=== PATIENT | female | born 1970 | race Caucasian/White ===

== ENCOUNTER 2016-06-19 14:35 | Emergency (ER) | payer BC ==
[~2016-06-19] VITALS: Ht 157.5 cm; Wt 75.0 kg
[~2016-06-19 14:35] MED LIST: ADVIL MIGRAINE200 MG PO; AEROBID INHALER7 GM IH; ALBUTEROL S0.4 MG/ML; ALBUTEROL0.83 MG/ML IH; AMITRIPTYLINE H10 MG; AURODEX 54 MG/M10 ML OT; BENTYL 10MG10 MG/CAP PO; BENTYL 20MG TAB20 MG PO; BUSPAR5 MG PO; CEPHALEXIN500 M1 PO; CIPRO HC OTIC S10 ML OT; CLARITIN 1010 MG/TAB PO; CLEOCIN HC150 MG/CAP PO; CYCLOBENZAPRINE10 MG PO; DARVOCET N 101 UDTAB PO; DESYREL DIVIDO150 M1 PO; EXCEDRIN TENSIO1 CAP PO; EXCEDRIN1 TAB PO; FLEXERIL 1010 MG/TAB PO; GLUCOSE4 GM PO; KLONOPIN 0.5MG0.5 MG PO; LEVAQUIN 5500 MG/TA1 PO; LIORESAL20 MG PO; MACROBID 1100 MG/CAP PO; MAGIC MOUTH PO; MEDROL 4MG DOSPA4 MG PO; MIRALAX 17GM PK1 PKT PO; NEURONTIN300 MG/CAP PO; NO HOME MEDICATIONS; NORCO 325 MG-51 TAB PO; PEPCID 20MG TAB20 MG PO; PERCOCET 325 MG1 TA2 PO; PHENERGAN W/CO120 M1 PO; PREDNISONE20 MG PO; PROAIR HFA0.09 MG/AC IH; PROVENTIL0.09 MG/A1 IH; PULMICORT180 MCG/Ac IH; PYRIDIUM200 M1 PO; RISPERDAL3 MG PO; ROXICODONE 55 MG/TAB PO; RT ADVAIR 228 DISKUS IH; SEROQUEL 2525 MG/TAB PO; SINGULAIR10 MG PO; TRAZODONE HCL100 MG PO; ULTRAM 50MG TAB50 MG PO; VENTOLIN0.09 MG IH; VICODIN 5/300 PO; VICODIN 5/5001 UDTAB PO; ZITHROMAX 250M250 MG PO; ZITHROMAX Z PA250 MG PO; ZOFRAN 4MG T4 MG/TAB PO; ZOFRAN ODT4 MG PO; ZOLOFT 100MG100 MG PO; ZOLOFT50 MG PO
[2016-06-19 14:58] VITALS: TEMP 98
[2016-06-19 16:00] LABS: PH 5 (5-8); SQUAMOUS EPITHELIAL None Seen /hpf; URINE APPEARANCE Hazy; URINE BACTERIA None Seen /hpf; URINE BILIRUBIN Negative (NEGATIVE); URINE BLOOD 2+ (NEGATIVE); URINE COLOR Yellow; URINE GLUCOSE Negative (NEGATIVE); URINE KETONE Negative (NEGATIVE); URINE RBC None Seen /hpf; URINE UROBILINOGEN Negative (NEGATIVE); URINE WBC None Seen /hpf
[2016-06-19] MEDS ORDERED: FLEXERIL 1010 MG/TAB PO (16:29)
[2016-06-19 16:38] VITALS: BP 114/58; PULSE 78
== END 2016-06-19 16:39 | disposition home or self-care (01) ==
LOC: COL.ER 14:35
PROVIDERS: Physician Assistant
DX: M54.5 Low back pain (principal)

== ENCOUNTER 2016-06-25 17:33 | Emergency (ER) | payer BC ==
[~2016-06-25] VITALS: Ht 157.5 cm; Wt 68.2 kg
[2016-06-25] MEDS ORDERED: ULTRAM 50MG TAB50 MG PO (17:39)
[2016-06-25] MEDS ORDERED: NORCO 325 MG-51 TAB PO (17:40)
[2016-06-25] MEDS ORDERED: CLEOCIN HCL300 MG PO (18:31)
[2016-06-25 19:10] VITALS: BP 160/85; PULSE 88; TEMP 99.2
== END 2016-06-25 18:44 | disposition home or self-care (01) ==
LOC: COL.ER 17:33
DX: K12.2 Cellulitis and abscess of mouth (principal); F17.210 Nicotine dependence, cigarettes, uncomplicated; E11.9 Type 2 diabetes mellitus without complications; Z88.0 Allergy status to penicillin

== ENCOUNTER 2016-06-27 10:39 | Emergency (ER) | payer BC ==
[~2016-06-27] VITALS: Ht 157.5 cm; Wt 68.2 kg
[~2016-06-27 10:39] MED LIST changes: +CLEOCIN HCL300 MG PO
[2016-06-27 10:41] VITALS: TEMP 100.5
[2016-06-27 12:42] VITALS: BP 120/68; PULSE 90
== END 2016-06-27 12:42 | disposition home or self-care (01) ==
LOC: COL.ER 10:39
DX: K12.2 Cellulitis and abscess of mouth (principal); E11.9 Type 2 diabetes mellitus without complications; R50.9 Fever, unspecified; Z79.84 Long term (current) use of oral hypoglycemic drugs

== ENCOUNTER 2016-07-25 23:50 | Emergency (ER) | payer BC ==
[~2016-07-25] VITALS: Ht 157.5 cm; Wt 80.9 kg
[2016-07-25 23:57] VITALS: TEMP 98.6
[2016-07-26 00:07] LABS: BASO % 0.3 % (0.0-2.0); EOS % 0.2 % (0-4.0); GRAN % 75.4 % (42.2-75.2); HEMOGLOBIN 15.2 g/dl (12.5-16.0); LYMPH # 2.8 (1.2-3.4); LYMPH % 17.5 % (20.0-51.0); MEAN CELL VOLUME 83 fl (80.0-100.0); MEAN CORPUSCULAR HEMOGLOBIN 29 pg (27.0-31.0); MEAN CORPUSCULAR HGB CONC 35 g/dl (33.0-37.0); MEAN PLATELET VOLUME 10.7 fl (7.4-10.4); MONO % 6.2 % (1.7-9.3); PLATELET COUNT 266 K/mm3 (130-400); RED BLOOD COUNT 5.28 M/mm3 (4.10-5.30)
[2016-07-26] MEDS ORDERED: FLEXERIL 1010 MG/TAB PO (00:13)
[2016-07-26] MEDS ORDERED: ULTRAM 50MG TAB50 MG PO (00:13)
[2016-07-26 00:15] LABS: ADJUSTED CALCIUM 8.7 mg/dL (8.4-10.2); ALANINE AMINOTRANSFERASE 35 U/L (9-52); ALBUMIN 4.7 gm/dL (3.5-5.0); ALKALINE PHOSPHATASE 113 U/L (50-136); ANION GAP 15 mmol/L (7-16); BLOOD UREA NITROGEN 7 mg/dL (7-17); CALCIUM 9.3 mg/dL (8.4-10.2); CARBON DIOXIDE 24 mmol/L (22-30); CHLORIDE 101 mmol/L (98-107); CREATININE, serum 0.61 mg/dL (0.52-1.25); GLUCOSE 126 mg/dL (74-106); LIPASE 64 U/L (23-300); POTASSIUM 3.4 mmol/L (3.4-5.0); SODIUM 139 mmol/L (137-145)
[2016-07-26 00:27] LABS: B-TYPE NATRIURETIC PEPTIDE 178 pg/mL (0-125)
[2016-07-26 00:28] LABS: TROPONIN-I < 0.012 ng/mL (0.000-0.034)
[2016-07-26 01:00] VITALS: BP 101/71; PULSE 93
== END 2016-07-26 01:07 | disposition home or self-care (01) ==
LOC: COL.ER 23:50
PROVIDERS: Emergency Medicine
DX: R07.9 Chest pain, unspecified (principal); J06.9 Acute upper respiratory infection, unspecified; R00.0 Tachycardia, unspecified; F17.210 Nicotine dependence, cigarettes, uncomplicated

== ENCOUNTER 2016-08-04 22:14 | Emergency (ER) | payer BC ==
[~2016-08-04] VITALS: Ht 157.5 cm; Wt 71.8 kg
[2016-08-04 22:16] VITALS: BP 114/86; TEMP 97.1
[2016-08-04 23:07] LABS: BASO # 0.1 (0.0-0.2); BASO % 0.5 % (0.0-2.0); EOS # 0.2 (0.0-0.7); EOS % 1.6 % (0-4.0); GRAN # 5.1 (1.4-6.5); GRAN % 52.6 % (42.2-75.2); HEMATOCRIT 42.3 % (37.0-47.0); HEMOGLOBIN 14.2 g/dl (12.5-16.0); LYMPH # 3.7 (1.2-3.4); LYMPH % 37.9 % (20.0-51.0); MEAN CELL VOLUME 86 fl (80.0-100.0); MEAN CORPUSCULAR HEMOGLOBIN 29 pg (27.0-31.0); MEAN CORPUSCULAR HGB CONC 34 g/dl (33.0-37.0); MEAN PLATELET VOLUME 10.5 fl (7.4-10.4); MONO # 0.7 (0.1-0.6); PLATELET COUNT 323 K/mm3 (130-400); REDCELL DISTRIBUTION WIDTH-CV 14.6 % (11.5-14.5); WHITE BLOOD COUNT 9.8 K/mm3 (4.8-10.8)
[2016-08-04 23:10] LABS: PH 5 (5-8); URINE APPEARANCE Hazy; URINE BACTERIA None Seen /hpf; URINE BILIRUBIN Negative (NEGATIVE); URINE BLOOD 2+ (NEGATIVE); URINE COLOR Yellow; URINE GLUCOSE Negative (NEGATIVE); URINE KETONE Negative (NEGATIVE); URINE UROBILINOGEN Negative (NEGATIVE)
[2016-08-04 23:23] LABS: ADJUSTED CALCIUM 8.6 mg/dL (8.4-10.2); ALANINE AMINOTRANSFERASE 59 U/L (9-52); ALKALINE PHOSPHATASE 94 U/L (50-136); ANION GAP 12 mmol/L (7-16); BILIRUBIN,TOTAL 0.5 mg/dL (0.0-1.0); BLOOD UREA NITROGEN 8 mg/dL (7-17); CALCIUM 8.6 mg/dL (8.4-10.2); CARBON DIOXIDE 24 mmol/L (22-30); CHLORIDE 104 mmol/L (98-107); CREATININE, serum 0.61 mg/dL (0.52-1.25); GLUCOSE 90 mg/dL (74-106); LIPASE 105 U/L (23-300); POTASSIUM 4.1 mmol/L (3.4-5.0); SODIUM 140 mmol/L (137-145); TOTAL PROTEIN 7.5 gm/dL (6.4-8.2)
[2016-08-04 23:24] LABS: C-REACTIVE PROTEIN < 0.5 mg/dL (0.0-0.9)
[2016-08-05 00:10] VITALS: PULSE 67
== END 2016-08-05 00:12 | disposition home or self-care (01) ==
LOC: COL.ER 22:14
PROVIDERS: Emergency Medicine
DX: R10.84 Generalized abdominal pain (principal); R11.10 Vomiting, unspecified; R19.7 Diarrhea, unspecified
CPT/HCPCS: J1170; J2550; J7030

== ENCOUNTER 2016-08-25 00:19 | Emergency (ER) | payer BC ==
[~2016-08-25] VITALS: Ht 157.5 cm; Wt 81.8 kg
[2016-08-25 00:21] VITALS: BP 129/78; PULSE 90; TEMP 97.9
== END 2016-08-25 01:19 | disposition home or self-care (01) ==
LOC: COL.ER 00:19
DX: G89.29 Other chronic pain (principal); R10.84 Generalized abdominal pain; J45.909 Unspecified asthma, uncomplicated; F17.210 Nicotine dependence, cigarettes, uncomplicated; Z87.442 Personal history of urinary calculi

== ENCOUNTER → 2016-10-12 | Emergency (ER) | payer BC ==
[~2016-10-12] VITALS: Ht 157.5 cm; Wt 79.5 kg
[~2016-10-12] MED LIST changes: +K-DUR20 MEQ PO; +K-TAB20 PO; +MOTRIN 200200 MG/TAB PO
[2016-10-12 21:50] VITALS: TEMP 98.1
[2016-10-12 23:16] LABS: BASO % 0.4 % (0.0-2.0); EOS # 0.2 (0.0-0.7); EOS % 1.6 % (0-4.0); GRAN # 4.8 (1.4-6.5); GRAN % 48.3 % (42.2-75.2); HEMATOCRIT 41.3 % (37.0-47.0); HEMOGLOBIN 13.7 g/dl (12.5-16.0); LYMPH # 4.1 (1.2-3.4); LYMPH % 41.2 % (20.0-51.0); MEAN CELL VOLUME 88 fl (80.0-100.0); MEAN CORPUSCULAR HEMOGLOBIN 29 pg (27.0-31.0); MEAN CORPUSCULAR HGB CONC 33 g/dl (33.0-37.0); MEAN PLATELET VOLUME 10.7 fl (7.4-10.4); MONO # 0.8 (0.1-0.6); MONO % 8.3 % (1.7-9.3); PLATELET COUNT 272 K/mm3 (130-400); RED BLOOD COUNT 4.72 M/mm3 (4.10-5.30); WHITE BLOOD COUNT 9.9 K/mm3 (4.8-10.8)
[2016-10-12 23:30] LABS: ANION GAP 11 mmol/L (7-16); BLOOD UREA NITROGEN 8 mg/dL (7-17); CALCIUM 8.4 mg/dL (8.4-10.2); CARBON DIOXIDE 25 mmol/L (22-30); CHLORIDE 104 mmol/L (98-107); CREATININE, serum 0.61 mg/dL (0.52-1.25); GLUCOSE 79 mg/dL (74-106); POTASSIUM 3.9 mmol/L (3.4-5.0); SODIUM 141 mmol/L (137-145)
[2016-10-12 23:42] LABS: TROPONIN-I < 0.012 ng/mL (0.000-0.034)
[2016-10-12 23:46] LABS: PROLACTIN 60.3 ng/mL (3.0-18.6)
[2016-10-13 00:17] VITALS: BP 104/71; PULSE 88
== END | disposition home or self-care (01) ==
LOC: COL.ER 21:42
PROVIDERS: Emergency Medicine
DX: R55 Syncope and collapse (principal); R07.9 Chest pain, unspecified; F31.9 Bipolar disorder, unspecified; F20.9 Schizophrenia, unspecified; F17.210 Nicotine dependence, cigarettes, uncomplicated

== ENCOUNTER 2016-10-20 22:15 | Emergency (ER) | payer BC ==
[~2016-10-20] VITALS: Ht 157.5 cm; Wt 79.5 kg
[~2016-10-20 22:15] MED LIST changes: -K-DUR20 MEQ PO; -K-TAB20 PO; -MOTRIN 200200 MG/TAB PO
[2016-10-20 22:22] VITALS: TEMP 98.4
[2016-10-21] MEDS ORDERED: FLEXERIL 1010 MG/TAB PO (00:03)
[2016-10-21 01:04] VITALS: BP 104/67; PULSE 91
== END 2016-10-21 01:04 | disposition home or self-care (01) ==
LOC: COL.ER 22:15
DX: R51 Headache (principal); R11.0 Nausea; M54.2 Cervicalgia; H53.8 Other visual disturbances
CPT/HCPCS: J1200; J1885; J2550; J7030

== ENCOUNTER 2016-11-02 19:18 | Emergency (ER) | payer BC ==
[~2016-11-02] VITALS: Ht 157.5 cm; Wt 80.9 kg
[2016-11-02 19:25] VITALS: TEMP 98.9
[2016-11-02 20:00] LABS: BASO % 0.3 % (0.0-2.0); EOS # 0.2 (0.0-0.7); EOS % 2.3 % (0-4.0); GRAN % 59.9 % (42.2-75.2); HEMATOCRIT 42.4 % (37.0-47.0); HEMOGLOBIN 14.7 g/dl (12.5-16.0); LYMPH # 3.2 (1.2-3.4); LYMPH % 31.8 % (20.0-51.0); MEAN CELL VOLUME 85 fl (80.0-100.0); MEAN CORPUSCULAR HEMOGLOBIN 29 pg (27.0-31.0); MEAN CORPUSCULAR HGB CONC 35 g/dl (33.0-37.0); MEAN PLATELET VOLUME 11.1 fl (7.4-10.4); MONO # 0.6 (0.1-0.6); MONO % 5.5 % (1.7-9.3); PLATELET COUNT 281 K/mm3 (130-400); RED BLOOD COUNT 5.01 M/mm3 (4.10-5.30); REDCELL DISTRIBUTION WIDTH-CV 13.9 % (11.5-14.5)
[2016-11-02 20:14] LABS: ADJUSTED CALCIUM 7.9 mg/dL (8.4-10.2); ALANINE AMINOTRANSFERASE 161 U/L (9-52); ALBUMIN 4.2 gm/dL (3.5-5.0); ALKALINE PHOSPHATASE 174 U/L (50-136); ANION GAP 12 mmol/L (7-16); BLOOD UREA NITROGEN 7 mg/dL (7-17); C-REACTIVE PROTEIN 1.9 mg/dL (0.0-0.9); CALCIUM 8.1 mg/dL (8.4-10.2); CARBON DIOXIDE 26 mmol/L (22-30); CHLORIDE 98 mmol/L (98-107); CREATININE, serum 0.59 mg/dL (0.52-1.25); GLUCOSE 144 mg/dL (74-106); SODIUM 136 mmol/L (137-145); TOTAL PROTEIN 7.6 gm/dL (6.4-8.2)
[2016-11-02 20:16] LABS: POTASSIUM 2.8 mmol/L (3.4-5.0)
[2016-11-02 20:27] LABS: TROPONIN-I < 0.012 ng/mL (0.000-0.034)
[2016-11-02] MEDS ORDERED: PREDNISONE20 MG PO (22:02)
[2016-11-02] MEDS ORDERED: ZITHROMAX 250M250 MG PO (22:02)
[2016-11-02] MEDS ORDERED: K-DUR20 MEQ PO (22:07)
[2016-11-02 23:07] VITALS: BP 102/77; PULSE 89
== END 2016-11-02 23:09 | disposition home or self-care (01) ==
LOC: COL.ER 19:18
PROVIDERS: Emergency Medicine
DX: J20.9 Acute bronchitis, unspecified (principal); F17.210 Nicotine dependence, cigarettes, uncomplicated; J45.909 Unspecified asthma, uncomplicated; E87.6 Hypokalemia; F99 Mental disorder, not otherwise specified
CPT/HCPCS: J7512

== ENCOUNTER 2016-11-17 09:31 | Emergency (ER) | payer BC ==
[~2016-11-17] VITALS: Ht 157.5 cm; Wt 77.3 kg
[~2016-11-17 09:31] MED LIST changes: +K-DUR20 MEQ PO
[2016-11-17 09:38] VITALS: TEMP 98.1
[2016-11-17 10:16] LABS: BASO % 0.5 % (0.0-2.0); EOS # 0.2 (0.0-0.7); EOS % 2.4 % (0-4.0); GRAN # 5.4 (1.4-6.5); GRAN % 60.7 % (42.2-75.2); HEMATOCRIT 39.7 % (37.0-47.0); HEMOGLOBIN 13.3 g/dl (12.5-16.0); LYMPH # 2.6 (1.2-3.4); LYMPH % 29.2 % (20.0-51.0); MEAN CELL VOLUME 87 fl (80.0-100.0); MEAN CORPUSCULAR HEMOGLOBIN 29 pg (27.0-31.0); MEAN CORPUSCULAR HGB CONC 34 g/dl (33.0-37.0); MEAN PLATELET VOLUME 11.2 fl (7.4-10.4); MONO # 0.6 (0.1-0.6); PLATELET COUNT 238 K/mm3 (130-400); RED BLOOD COUNT 4.58 M/mm3 (4.10-5.30); REDCELL DISTRIBUTION WIDTH-CV 14.3 % (11.5-14.5); WHITE BLOOD COUNT 8.9 K/mm3 (4.8-10.8)
[2016-11-17 10:26] LABS: ADJUSTED CALCIUM 8.5 mg/dL (8.4-10.2); ALANINE AMINOTRANSFERASE 64 U/L (9-52); ALBUMIN 3.8 gm/dL (3.5-5.0); ALKALINE PHOSPHATASE 99 U/L (50-136); ANION GAP 9 mmol/L (7-16); BILIRUBIN,TOTAL 0.5 mg/dL (0.0-1.0); BLOOD UREA NITROGEN 4 mg/dL (7-17); CALCIUM 8.3 mg/dL (8.4-10.2); CARBON DIOXIDE 28 mmol/L (22-30); CHLORIDE 102 mmol/L (98-107); CREATININE, serum 0.62 mg/dL (0.52-1.25); GLUCOSE 93 mg/dL (74-106); POTASSIUM 3.1 mmol/L (3.4-5.0); SODIUM 139 mmol/L (137-145); TOTAL PROTEIN 6.9 gm/dL (6.4-8.2)
[2016-11-17 10:58] LABS: PH 5 (5-8); URINE APPEARANCE Clear; URINE BACTERIA Rare /hpf; URINE BILIRUBIN Negative (NEGATIVE); URINE BLOOD 2+ (NEGATIVE); URINE COLOR Yellow; URINE GLUCOSE Negative (NEGATIVE); URINE KETONE Negative (NEGATIVE); URINE UROBILINOGEN Negative (NEGATIVE)
[2016-11-17 10:59] LABS: AMPHETAMINE URINE POSITIVE; BARBITURATES URINE NEGATIVE; BENZODIAZEPINES URINE NEGATIVE; BUPRENORPHINE URINE NEGATIVE; METHADONE URINE NEGATIVE; OPIATES URINE NEGATIVE; OXYCODONE URINE NEGATIVE; PHENCYCLIDINE URINE NEGATIVE; PROPOXYPHENE URINE NEGATIVE; THC CANNABINOIDS URINE NEGATIVE
[2016-11-17 11:48] VITALS: BP 109/86; PULSE 64
[2016-11-17] MEDS ORDERED: K-TAB20 PO (12:29)
== END 2016-11-17 11:49 | disposition home or self-care (01) ==
LOC: COL.ER 09:31
PROVIDERS: Nurse Practitioner
DX: R40.0 Somnolence (principal); F31.9 Bipolar disorder, unspecified; F41.9 Anxiety disorder, unspecified; E11.9 Type 2 diabetes mellitus without complications; J45.909 Unspecified asthma, uncomplicated; G43.909 Migraine, unspecified, not intractable, without status migrainosus; F20.9 Schizophrenia, unspecified; F17.210 Nicotine dependence, cigarettes, uncomplicated; Z90.49 Acquired absence of other specified parts of digestive tract; Z98.51 Tubal ligation status; Z85.41 Personal history of malignant neoplasm of cervix uteri; Z98.890 Other specified postprocedural states

== ENCOUNTER 2017-01-13 18:39 | Emergency (ER) | payer BC ==
[~2017-01-13] VITALS: Ht 157.5 cm; Wt 68.2 kg
[~2017-01-13 18:39] MED LIST changes: +K-TAB20 PO
[2017-01-13 18:41] VITALS: BP 124/73; PULSE 91; TEMP 98.6
[2017-01-13] MEDS ORDERED: MOTRIN 200200 MG/TAB PO (19:32)
[2017-01-13] MEDS ORDERED: ALBUTEROL0.83 MG/ML IH (19:50)
== END 2017-01-13 20:28 | disposition home or self-care (01) ==
LOC: COL.ER 18:39
DX: G43.909 Migraine, unspecified, not intractable, without status migrainosus (principal); M62.838 Other muscle spasm; J45.909 Unspecified asthma, uncomplicated; F17.210 Nicotine dependence, cigarettes, uncomplicated; G89.29 Other chronic pain; Z76.0 Encounter for issue of repeat prescription; Z91.14 Patient's other noncompliance with medication regimen
CPT/HCPCS: J2360

== ENCOUNTER 2017-04-04 17:11 | Emergency (ER) | payer BC ==
[~2017-04-04] VITALS: Ht 157.5 cm; Wt 72.7 kg
[~2017-04-04 17:11] MED LIST changes: +MOTRIN 200200 MG/TAB PO
[2017-04-04 17:14] VITALS: BP 137/82; TEMP 98.2
[2017-04-04 19:02] VITALS: PULSE 90
== END 2017-04-04 19:03 | disposition home or self-care (01) ==
LOC: COL.ER 17:11
DX: B34.9 Viral infection, unspecified (principal); J45.909 Unspecified asthma, uncomplicated; F17.210 Nicotine dependence, cigarettes, uncomplicated

== ENCOUNTER 2017-04-07 17:21 | Emergency (ER) | payer BC ==
[~2017-04-07] VITALS: Ht 157.5 cm; Wt 70.5 kg
[2017-04-07 17:29] VITALS: BP 122/79; TEMP 98.1
[2017-04-07 19:28] VITALS: PULSE 70
== END 2017-04-07 19:20 | disposition home or self-care (01) ==
LOC: COL.ER 17:21
DX: B34.9 Viral infection, unspecified (principal); J45.909 Unspecified asthma, uncomplicated; F17.210 Nicotine dependence, cigarettes, uncomplicated

== ENCOUNTER 2017-08-31 10:52 | Emergency (ER) | payer SELFPAY ==
[~2017-08-31] VITALS: Ht 157.5 cm; Wt 65.9 kg
[2017-08-31 10:54] VITALS: TEMP 98
[2017-08-31 11:35] LABS: COLLECTION METHOD CLEAN CATCH
[2017-08-31] MEDS ORDERED: ZITHROMAX Z PA250 MG PO (11:42)
[2017-08-31 11:43] LABS: MUCOUS Present /lpf; PH 5 (5-8); SQUAMOUS EPITHELIAL 0-2 /hpf; URINE APPEARANCE Hazy; URINE BACTERIA Rare /hpf; URINE BILIRUBIN Negative (NEGATIVE); URINE BLOOD 2+ (NEGATIVE); URINE COLOR Yellow; URINE GLUCOSE Negative (NEGATIVE); URINE KETONE Negative (NEGATIVE); URINE LEUKOCYTE ESTERASE Negative (NEGATIVE); URINE NITRATE Negative (NEGATIVE); URINE PROTEIN(semi-quant) Negative (NEGATIVE); URINE UROBILINOGEN Negative (NEGATIVE)
[2017-08-31] MEDS ORDERED: PROAIR HFA0.09 MG/AC IH (11:43)
[2017-08-31] MEDS ORDERED: FLEXERIL 1010 MG/TAB PO (11:43)
[2017-08-31 12:25] VITALS: BP 125/89; PULSE 80
== END 2017-08-31 12:26 | disposition home or self-care (01) ==
LOC: COL.ER 10:52
PROVIDERS: Physician Assistant
DX: M54.31 Sciatica, right side (principal); E11.9 Type 2 diabetes mellitus without complications; J45.909 Unspecified asthma, uncomplicated; F31.9 Bipolar disorder, unspecified; F41.9 Anxiety disorder, unspecified; G43.909 Migraine, unspecified, not intractable, without status migrainosus; F17.210 Nicotine dependence, cigarettes, uncomplicated; Z87.828 Personal history of other (healed) physical injury and trauma; Z86.14 Personal history of Methicillin resistant Staphylococcus aureus infection; Z88.0 Allergy status to penicillin; Z88.6 Allergy status to analgesic agent; Z90.49 Acquired absence of other specified parts of digestive tract; Z98.51 Tubal ligation status
CPT/HCPCS: J1885

== ENCOUNTER 2017-10-03 13:07 | Emergency (ER) | payer SELFPAY ==
[~2017-10-03] VITALS: Ht 157.5 cm; Wt 59.1 kg
[2017-10-03 13:09] VITALS: BP 124/90; TEMP 97.9
[2017-10-03 13:45] VITALS: PULSE 81
== END 2017-10-03 13:42 | disposition home or self-care (01) ==
LOC: COL.ER 13:07
DX: M79.604 Pain in right leg (principal); F41.9 Anxiety disorder, unspecified; F31.9 Bipolar disorder, unspecified; F20.9 Schizophrenia, unspecified; F17.210 Nicotine dependence, cigarettes, uncomplicated; E11.9 Type 2 diabetes mellitus without complications; Z79.84 Long term (current) use of oral hypoglycemic drugs; Z85.41 Personal history of malignant neoplasm of cervix uteri

== ENCOUNTER 2017-10-12 00:51 | Emergency (ER) | payer SELFPAY ==
[~2017-10-12] VITALS: Ht 157.5 cm; Wt 59.1 kg
[2017-10-12 01:04] VITALS: BP 136/73; PULSE 84; TEMP 97.4
[2017-10-12] MEDS ORDERED: FLEXERIL 1010 MG/TAB PO (23:04)
== END 2017-10-12 02:00 | disposition left against medical advice (07) ==
LOC: COL.ER 00:51
DX: M25.552 Pain in left hip (principal)

== ENCOUNTER 2017-10-12 20:43 | Emergency (ER) | payer SELFPAY ==
[~2017-10-12] VITALS: Ht 157.5 cm; Wt 59.1 kg
[2017-10-12 20:46] VITALS: TEMP 97.7
[2017-10-12 21:39] LABS: COLLECTION METHOD CLEAN CATCH
[2017-10-12 21:53] LABS: MUCOUS Present /lpf; PH 6 (5-8); SQUAMOUS EPITHELIAL 0-2 /hpf; TRICYCLIC ANTIDEPRESS URINE NEGATIVE; URINE APPEARANCE Clear; URINE BACTERIA None Seen /hpf; URINE BILIRUBIN Negative (NEGATIVE); URINE BLOOD 2+ (NEGATIVE); URINE COLOR Yellow; URINE GLUCOSE Negative (NEGATIVE); URINE KETONE Negative (NEGATIVE); URINE LEUKOCYTE ESTERASE Negative (NEGATIVE); URINE NITRATE Negative (NEGATIVE); URINE PROTEIN(semi-quant) Negative (NEGATIVE); URINE UROBILINOGEN Negative (NEGATIVE)
[2017-10-12] MEDS ORDERED: FLEXERIL 1010 MG/TAB PO (23:04)
[2017-10-12 23:13] VITALS: BP 133/70; PULSE 90
== END 2017-10-12 23:13 | disposition home or self-care (01) ==
LOC: COL.ER 20:43
PROVIDERS: Physician Assistant
DX: R07.89 Other chest pain (principal); J40 Bronchitis, not specified as acute or chronic; R20.2 Paresthesia of skin; G43.909 Migraine, unspecified, not intractable, without status migrainosus; F17.210 Nicotine dependence, cigarettes, uncomplicated; F10.10 Alcohol abuse, uncomplicated
CPT/HCPCS: J0780; J1200; J1885

== ENCOUNTER 2017-11-16 18:26 | Emergency (ER) | payer SELFPAY ==
[~2017-11-16] VITALS: Ht 157.5 cm; Wt 59.1 kg
[2017-11-16 18:28] VITALS: BP 108/68; PULSE 82; TEMP 98
[2017-11-16] MEDS ORDERED: FLEXERIL 1010 MG/TAB PO (19:33)
== END 2017-11-16 19:57 | disposition home or self-care (01) ==
LOC: COL.ER 18:26
DX: S09.90XA Unspecified injury of head, initial encounter (principal); S16.1XXA Strain of muscle, fascia and tendon at neck level, initial encounter; S39.012A Strain of muscle, fascia and tendon of lower back, initial encounter; S29.012A Strain of muscle and tendon of back wall of thorax, initial encounter; F17.210 Nicotine dependence, cigarettes, uncomplicated; V49.50XA Passenger injured in collision with unspecified motor vehicles in traffic accident, initial encounter
CPT/HCPCS: J1885; J2360

== ENCOUNTER 2018-07-06 17:13 | Emergency (ER) | payer SELFPAY ==
[~2018-07-06] VITALS: Ht 157.5 cm; Wt 54.5 kg
[2018-07-06 17:35] VITALS: BP 131/91; TEMP 98.4
[2018-07-06] MEDS ORDERED: FLEXERIL 1010 MG/TAB PO (18:34)
[2018-07-06 18:44] VITALS: PULSE 90
== END 2018-07-06 18:45 | disposition home or self-care (01) ==
LOC: COL.ER 17:13
DX: S60.222A Contusion of left hand, initial encounter (principal); W22.8XXA Striking against or struck by other objects, initial encounter

== ENCOUNTER 2018-09-18 00:15 | Emergency (ER) | payer SELFPAY ==
[2018-09-18 00:35] VITALS: TEMP 98.4
[2018-09-18 00:54] LABS: COLLECTION METHOD CLEAN CATCH
[2018-09-18 00:57] LABS: BASO # 0.1 (0.0-0.2); BASO % 0.4 % (0.0-2.0); EOS # 0.1 (0.0-0.7); EOS % 0.5 % (0-4.0); GRAN # 9.2 (1.4-6.5); GRAN % 64.5 % (42.2-75.2); HEMATOCRIT 39.3 % (37.0-47.0); HEMOGLOBIN 13.2 g/dl (12.5-16.0); LYMPH # 3.8 (1.2-3.4); LYMPH % 26.2 % (20.0-51.0); MEAN CELL VOLUME 87 fl (80.0-100.0); MEAN CORPUSCULAR HEMOGLOBIN 29 pg (27.0-31.0); MEAN CORPUSCULAR HGB CONC 34 g/dl (33.0-37.0); MEAN PLATELET VOLUME 10.7 fl (7.4-10.4); MONO # 1.2 (0.1-0.6); MONO % 8.2 % (1.7-9.3); PLATELET COUNT 273 K/mm3 (130-400); RED BLOOD COUNT 4.52 M/mm3 (4.10-5.30); REDCELL DISTRIBUTION WIDTH-CV 13.6 % (11.5-14.5)
[2018-09-18 00:59] LABS: MUCOUS Present /lpf; PH 5 (5-8); URINE APPEARANCE Clear; URINE BACTERIA None Seen /hpf; URINE BILIRUBIN Negative (NEGATIVE); URINE BLOOD 2+ (NEGATIVE); URINE COLOR Yellow; URINE GLUCOSE Negative (NEGATIVE); URINE KETONE 1+ (NEGATIVE); URINE LEUKOCYTE ESTERASE Negative (NEGATIVE); URINE NITRATE Negative (NEGATIVE); URINE PROTEIN(semi-quant) Negative (NEGATIVE); URINE UROBILINOGEN Negative (NEGATIVE)
[2018-09-18 01:08] LABS: TRICYCLIC ANTIDEPRESS URINE NEGATIVE
[2018-09-18 01:17] LABS: ALANINE AMINOTRANSFERASE 24 U/L (9-52); ALBUMIN 4.3 gm/dL (3.5-5.0); ALKALINE PHOSPHATASE 103 U/L (50-136); ANION GAP 9 mmol/L (7-16); AST,SGOT 41 U/L (15-37); BILIRUBIN,TOTAL 1.1 mg/dL (0.0-1.0); BLOOD UREA NITROGEN 20 mg/dL (7-17); CALCIUM 8.9 mg/dL (8.4-10.2); CARBON DIOXIDE 26 mmol/L (22-30); CHLORIDE 102 mmol/L (98-107); CREATININE, serum 0.61 (0.52-1.25); GLUCOSE 88 mg/dL (74-106); MAGNESIUM 1.8 mg/dL (1.6-2.3); POTASSIUM 3.2 mmol/L (3.4-5.0); SODIUM 137 mmol/L (137-145); TOTAL PROTEIN 7.8 gm/dL (6.4-8.2)
[2018-09-18 01:18] LABS: ACETAMINOPHEN < 10 ug/mL (10-30); ALCOHOL(ethanol),MEDICAL < 10 mg/dL; SALICYLATE < 1.0 mg/dL
[2018-09-18 10:39] VITALS: BP 106/88; PULSE 72
== END 2018-09-18 10:47 | disposition home or self-care (01) ==
LOC: COL.ER 00:15
PROVIDERS: Emergency Medicine
DX: F29 Unspecified psychosis not due to a substance or known physiological condition (principal); R45.850 Homicidal ideations; F15.10 Other stimulant abuse, uncomplicated
CPT/HCPCS: J1200; J1630; J2060

== ENCOUNTER 2019-03-15 23:27 | Emergency (ER) | payer SELFPAY ==
[~2019-03-15] VITALS: Ht 157.5 cm; Wt 56.4 kg
[2019-03-15 23:34] VITALS: BP 107/72; PULSE 95; TEMP 97.2
[2019-03-17] MEDS ORDERED: PREDNISONE20 MG PO (01:47)
[2019-03-17] MEDS ORDERED: PROAIR HFA0.09 MG/AC IH (01:47)
== END 2019-03-16 00:11 | disposition left against medical advice (07) ==
LOC: COL.ER 23:27
DX: R07.9 Chest pain, unspecified (principal)

== ENCOUNTER 2019-03-16 21:44 | Emergency (ER) | payer SELFPAY ==
[~2019-03-16] VITALS: Ht 157.5 cm; Wt 56.4 kg
[2019-03-16 22:07] VITALS: BP 117/75; TEMP 97.4
[2019-03-16 23:23] LABS: BASO % 0.3 % (0.0-2.0); EOS # 0.1 (0.0-0.7); EOS % 1.1 % (0-4.0); GRAN # 7.4 (1.4-6.5); GRAN % 66.1 % (42.2-75.2); HEMATOCRIT 38.9 % (37.0-47.0); LYMPH # 2.8 (1.2-3.4); MEAN CELL VOLUME 88 fl (80.0-100.0); MEAN CORPUSCULAR HEMOGLOBIN 29 pg (27.0-31.0); MEAN CORPUSCULAR HGB CONC 33 g/dl (33.0-37.0); MEAN PLATELET VOLUME 10.1 fl (7.4-10.4); MONO # 0.8 (0.1-0.6); MONO % 7.2 % (1.7-9.3); PLATELET COUNT 277 K/mm3 (130-400); RED BLOOD COUNT 4.43 M/mm3 (4.10-5.30); REDCELL DISTRIBUTION WIDTH-CV 13.9 % (11.5-14.5)
[2019-03-16 23:33] LABS: ALANINE AMINOTRANSFERASE 133 U/L (9-52); ALBUMIN 3.9 gm/dL (3.5-5.0); ALKALINE PHOSPHATASE 113 U/L (50-136); ANION GAP 10 mmol/L (7-16); AST,SGOT 41 U/L (15-37); BILIRUBIN,TOTAL 0.2 mg/dL (0.0-1.0); BLOOD UREA NITROGEN 10 mg/dL (7-17); CALCIUM 8.1 mg/dL (8.4-10.2); CARBON DIOXIDE 27 mmol/L (22-30); CHLORIDE 103 mmol/L (98-107); CREATININE, serum 0.48 (0.52-1.25); GLUCOSE 76 mg/dL (74-106); POTASSIUM 3.6 mmol/L (3.4-5.0); SODIUM 140 mmol/L (137-145); TOTAL PROTEIN 7.1 gm/dL (6.4-8.2)
[2019-03-16 23:45] LABS: TROPONIN-I < 0.012 ng/mL (0.000-0.035)
[2019-03-17 00:24] LABS: TRICYCLIC ANTIDEPRESS URINE NEGATIVE
[2019-03-17 01:05] VITALS: PULSE 79
[2019-03-17] MEDS ORDERED: PROAIR HFA0.09 MG/AC IH (01:47)
[2019-03-17] MEDS ORDERED: PREDNISONE20 MG PO (01:47)
== END 2019-03-17 02:05 | disposition home or self-care (01) ==
LOC: COL.ER 21:44
PROVIDERS: Nurse Practitioner
DX: J45.901 Unspecified asthma with (acute) exacerbation (principal); F31.9 Bipolar disorder, unspecified; F20.9 Schizophrenia, unspecified; F17.210 Nicotine dependence, cigarettes, uncomplicated
CPT/HCPCS: J1885; J2405; J7030

== ENCOUNTER 2019-04-12 14:13 | Emergency (ER) | payer SELFPAY ==
[~2019-04-12] VITALS: Ht 157.5 cm; Wt 54.5 kg
[2019-04-12 14:24] VITALS: BP 114/82; TEMP 98.4
[2019-04-12 14:55] LABS: COLLECTION METHOD CLEAN CATCH
[2019-04-12 15:03] LABS: MUCOUS Present /lpf; PH 6 (5-8); SQUAMOUS EPITHELIAL 0-2 /hpf; URINE APPEARANCE Clear; URINE BACTERIA None Seen /hpf; URINE BILIRUBIN Negative (NEGATIVE); URINE BLOOD 2+ (NEGATIVE); URINE COLOR Yellow; URINE GLUCOSE Negative (NEGATIVE); URINE KETONE Negative (NEGATIVE); URINE LEUKOCYTE ESTERASE Negative (NEGATIVE); URINE NITRATE Negative (NEGATIVE); URINE PROTEIN(semi-quant) Negative (NEGATIVE); URINE UROBILINOGEN Negative (NEGATIVE)
[2019-04-12 15:38] VITALS: PULSE 80
== END 2019-04-12 15:36 | disposition home or self-care (01) ==
LOC: COL.ER 14:13
PROVIDERS: Physician Assistant
DX: R35.8 Other polyuria (principal); R06.2 Wheezing; E11.9 Type 2 diabetes mellitus without complications; F17.210 Nicotine dependence, cigarettes, uncomplicated; F41.9 Anxiety disorder, unspecified; G43.909 Migraine, unspecified, not intractable, without status migrainosus; Z90.89 Acquired absence of other organs; Z79.82 Long term (current) use of aspirin; Z98.51 Tubal ligation status; Z88.0 Allergy status to penicillin

== ENCOUNTER 2019-10-31 13:32 | Emergency (ER) | payer SELFPAY ==
[~2019-10-31] VITALS: Ht 157.5 cm; Wt 56.8 kg
[2019-10-31 14:19] VITALS: PULSE 88; TEMP 98.1
[2019-10-31 15:26] LABS: HEMATOCRIT 39.9 % (37.0-47.0); HEMOGLOBIN 13.2 g/dl (12.5-16.0); MEAN CELL VOLUME 87 fl (80.0-100.0); MEAN CORPUSCULAR HEMOGLOBIN 29 pg (27.0-31.0); MEAN CORPUSCULAR HGB CONC 33 g/dl (33.0-37.0); MEAN PLATELET VOLUME 10.4 fl (7.4-10.4); PLATELET COUNT 235 K/mm3 (130-400); RED BLOOD COUNT 4.58 M/mm3 (4.10-5.30); REDCELL DISTRIBUTION WIDTH-CV 14.2 % (11.5-14.5)
[2019-10-31 15:41] VITALS: BP 116/82
[2019-10-31 15:49] LABS: ALANINE AMINOTRANSFERASE 21 U/L (4-34); ALBUMIN 4.1 gm/dL (3.5-5.0); ALKALINE PHOSPHATASE 102 U/L (50-136); ANION GAP 6 mmol/L (7-16); AST,SGOT 101 U/L (15-37); BILIRUBIN,TOTAL 0.7 mg/dL (0.0-1.0); BLOOD UREA NITROGEN 17 mg/dL (7-17); CALCIUM 8.3 mg/dL (8.4-10.2); CARBON DIOXIDE 27 mmol/L (22-30); CHLORIDE 102 mmol/L (98-107); CREATININE, serum 0.59 (0.52-1.25); GLUCOSE 87 mg/dL (74-106); POTASSIUM 3.7 mmol/L (3.4-5.0); SODIUM 136 mmol/L (137-145); TOTAL PROTEIN 7.4 gm/dL (6.4-8.2)
[2019-10-31 15:50] LABS: ALCOHOL(ethanol),MEDICAL < 10 mg/dL
[2019-10-31 16:08] LABS: BAND 8 % (0-10); LYMPHOCYTE 35 % (20.0-51.0); NEUTROPHILS 52 % (42.0-75.2)
[2019-10-31 16:11] LABS: PLATELET ESTIMATE NORMAL (NORMAL)
[2019-10-31 16:33] LABS: HIV 1/2 Antibodies Non-Reactive; HIV-1p24 Antigen Non-Reactive
== END 2019-10-31 16:31 | disposition home or self-care (01) ==
LOC: COL.ER 13:32
PROVIDERS: Emergency Medicine
DX: T76.21XA Adult sexual abuse, suspected, initial encounter (principal); M25.512 Pain in left shoulder; M54.5 Low back pain; F17.210 Nicotine dependence, cigarettes, uncomplicated

== ENCOUNTER 2019-11-12 17:36 | Emergency (ER) | payer BC ==
[~2019-11-12] VITALS: Ht 157.5 cm; Wt 56.4 kg
[2019-11-12 17:42] VITALS: BP 127/80; PULSE 96; TEMP 98.3
[2019-11-12 18:22] LABS: BASO % 0.4 % (0.0-2.0); EOS # 0.1 (0.0-0.7); EOS % 1.1 % (0-4.0); GRAN # 5.3 (1.4-6.5); GRAN % 54.7 % (42.2-75.2); HEMATOCRIT 37.7 % (37.0-47.0); HEMOGLOBIN 12.4 g/dl (12.5-16.0); LYMPH # 3.5 (1.2-3.4); LYMPH % 35.9 % (20.0-51.0); MEAN CELL VOLUME 89 fl (80.0-100.0); MEAN CORPUSCULAR HEMOGLOBIN 29 pg (27.0-31.0); MEAN CORPUSCULAR HGB CONC 33 g/dl (33.0-37.0); MEAN PLATELET VOLUME 10.9 fl (7.4-10.4); MONO # 0.8 (0.1-0.6); MONO % 7.7 % (1.7-9.3); PLATELET COUNT 235 K/mm3 (130-400); RED BLOOD COUNT 4.23 M/mm3 (4.10-5.30); REDCELL DISTRIBUTION WIDTH-CV 14.2 % (11.5-14.5)
[2019-11-12 18:23] LABS: COLLECTION METHOD CLEAN CATCH
[2019-11-12 18:36] LABS: MUCOUS Present /lpf; PH 5 (5-8); URINE APPEARANCE Cloudy; URINE BACTERIA None Seen /hpf; URINE BILIRUBIN Negative (NEGATIVE); URINE BLOOD 3+ (NEGATIVE); URINE COLOR Yellow; URINE GLUCOSE Negative (NEGATIVE); URINE KETONE Trace (NEGATIVE); URINE LEUKOCYTE ESTERASE 1+ (NEGATIVE); URINE NITRATE Negative (NEGATIVE); URINE PROTEIN(semi-quant) 2+ (NEGATIVE); URINE RBC >50 /hpf
[2019-11-12 18:36] LABS: BILIRUBIN,TOTAL 0.9 mg/dL (0.0-1.0); CALCIUM 8.6 mg/dL (8.4-10.2); CREATININE, serum 0.57 (0.52-1.25); POTASSIUM 3.7 mmol/L (3.4-5.0); TOTAL PROTEIN 7.4 gm/dL (6.4-8.2)
== END 2019-11-12 19:33 | disposition left against medical advice (07) ==
LOC: COL.ER 17:36
PROVIDERS: Nurse Practitioner
DX: T74.21XA Adult sexual abuse, confirmed, initial encounter (principal); R10.2 Pelvic and perineal pain; M54.5 Low back pain; F17.210 Nicotine dependence, cigarettes, uncomplicated; Z90.49 Acquired absence of other specified parts of digestive tract; Z98.51 Tubal ligation status
CPT/HCPCS: J2270; J7030; Q9967

== ENCOUNTER 2019-11-14 12:02 | Emergency (ER) | payer BC ==
[~2019-11-14] VITALS: Ht 157.5 cm; Wt 61.4 kg
[2019-11-14 12:17] VITALS: BP 121/77; PULSE 71; TEMP 98.3
[2019-11-14 13:31] LABS: BASO % 0.3 % (0.0-2.0); EOS # 0.1 (0.0-0.7); EOS % 1.2 % (0-4.0); GRAN % 56.7 % (42.2-75.2); HEMOGLOBIN 11.4 g/dl (12.5-16.0); LYMPH # 3.3 (1.2-3.4); LYMPH % 36.9 % (20.0-51.0); MEAN CELL VOLUME 90 fl (80.0-100.0); MEAN CORPUSCULAR HEMOGLOBIN 30 pg (27.0-31.0); MEAN CORPUSCULAR HGB CONC 33 g/dl (33.0-37.0); MEAN PLATELET VOLUME 10.8 fl (7.4-10.4); MONO # 0.4 (0.1-0.6); MONO % 4.6 % (1.7-9.3); PLATELET COUNT 251 K/mm3 (130-400); RED BLOOD COUNT 3.84 M/mm3 (4.10-5.30); REDCELL DISTRIBUTION WIDTH-CV 14.2 % (11.5-14.5)
[2019-11-14 13:32] LABS: HEMATOCRIT 34.6 % (37.0-47.0)
[2019-11-14 13:48] LABS: ALBUMIN 3.3 gm/dL (3.5-5.0); BILIRUBIN,TOTAL 0.2 mg/dL (0.0-1.0); CALCIUM 8.3 mg/dL (8.4-10.2); CREATININE, serum 0.48 (0.52-1.25); POTASSIUM 3.8 mmol/L (3.4-5.0); TOTAL PROTEIN 6.3 gm/dL (6.4-8.2)
[2019-11-14 14:21] LABS: HIV 1/2 Antibodies Non-Reactive; HIV-1p24 Antigen Non-Reactive
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
== END 2019-11-14 15:00 | disposition home or self-care (01) ==
LOC: COL.ER 12:02
PROVIDERS: Emergency Medicine
DX: T76.21XA Adult sexual abuse, suspected, initial encounter (principal); Z79.82 Long term (current) use of aspirin; Z88.2 Allergy status to sulfonamides; Z32.02 Encounter for pregnancy test, result negative
CPT/HCPCS: J0696

== ENCOUNTER 2020-12-05 14:13 | Emergency (ER) | payer SELFPAY ==
[~2020-12-05] VITALS: Ht 157.5 cm; Wt 61.4 kg
[2020-12-05 14:18] VITALS: TEMP 97.9
[2020-12-05 16:05] LABS: BASO # 0.1 (0.0-0.2); BASO % 0.5 % (0.0-2.0); EOS # 0.1 (0.0-0.7); EOS % 1.1 % (0-4.0); GRAN # 5.6 (1.4-6.5); GRAN % 58.6 % (42.2-75.2); HEMATOCRIT 44.9 % (37.0-47.0); HEMOGLOBIN 14.7 g/dl (12.5-16.0); LYMPH # 3.2 (1.2-3.4); LYMPH % 32.7 % (20.0-51.0); MEAN CELL VOLUME 88 fl (80.0-100.0); MEAN CORPUSCULAR HEMOGLOBIN 29 pg (27.0-31.0); MEAN CORPUSCULAR HGB CONC 33 g/dl (33.0-37.0); MEAN PLATELET VOLUME 10.5 fl (7.4-10.4); MONO # 0.7 (0.1-0.6); MONO % 6.7 % (1.7-9.3); PLATELET COUNT 293 K/mm3 (130-400); RED BLOOD COUNT 5.12 M/mm3 (4.10-5.30); REDCELL DISTRIBUTION WIDTH-CV 14.4 % (11.5-14.5)
[2020-12-05 16:14] LABS: ALANINE AMINOTRANSFERASE 23 U/L (4-34); ALBUMIN 3.9 gm/dL (3.5-5.0); ALKALINE PHOSPHATASE 89 U/L (50-136); ANION GAP 4 mmol/L (7-16); AST,SGOT 21 U/L (15-37); BILIRUBIN,TOTAL 0.1 mg/dL (0.0-1.0); BLOOD UREA NITROGEN 13 mg/dL (7-17); CALCIUM 8.9 mg/dL (8.4-10.2); CARBON DIOXIDE 26 mmol/L (22-30); CHLORIDE 109 mmol/L (98-107); CREATININE, serum 0.52 (0.52-1.25); GLUCOSE 99 mg/dL (74-106); POTASSIUM 4.5 mmol/L (3.4-5.0); SODIUM 138 mmol/L (137-145); TOTAL PROTEIN 7.4 gm/dL (6.4-8.2)
[2020-12-05 16:25] LABS: TROPONIN-I < 0.012 ng/mL (0.000-0.035)
[2020-12-05 17:20] VITALS: BP 113/73; PULSE 961
== END 2020-12-05 14:45 | disposition home or self-care (01) ==
LOC: COL.ER 14:13
PROVIDERS: Nurse Practitioner
DX: R07.89 Other chest pain (principal); E11.9 Type 2 diabetes mellitus without complications; J45.909 Unspecified asthma, uncomplicated; F17.200 Nicotine dependence, unspecified, uncomplicated